=== PATIENT | male | born 1955 | race Caucasian/White ===

== ENCOUNTER 2024-05-26 12:07 | Outpatient (CLI) | payer MEDICARE, SELFPAY ==
--- NOTE | ~2024-05-26 | XR_ITS ---
EXAMINATION: XR chest 2V 05/26/2024 12:32 INDICATION: Acute bronchitis PROCEDURE: 2 view chest COMPARISON: No prior studies for comparison. FINDINGS: The lungs are clear. The cardiomediastinal silhouette is within normal limits. There are no pleural effusions. There is no pneumothorax suspected. IMPRESSION: 1: NO ACUTE CARDIOPULMONARY DISEASE. Reviewed, dictated and finalized at location B.
== END 2024-05-26 12:08 | disposition home or self-care (01) ==
LOC: MICIMG 12:10
PROVIDERS: PCP Internal Medicine; Visit Provider Internal Medicine
DX: J20.9 Acute bronchitis, unspecified (principal)
CPT/HCPCS: 71046

== ENCOUNTER 2024-12-27 08:58 | Emergency (ER) | payer MEDICARE, SELFPAY ==
--- NOTE | ~2024-12-27 | XR_ITS ---
Left foot Technique: AP, oblique, and lateral views were obtained. Clinical History: Injury Findings: No acute fracture or dislocation is seen. Osseous alignment is anatomic. Joint spaces are p reserved without erosive or degenerative change. Soft tissues are unremarkable. Impression: Unremarkable left foot radiographs. Reviewed, dictated and finalized at location . Impression: Unremarkable left foot radiographs.
[2024-12-27 09:15] VITALS: BP 159/95; PULSE 70; RESP 16; TEMP 36.6; O2SAT 100
--- NOTE | 2024-12-27 09:31 | ED.LOWEXIN ---
HPI - Extremity Injury (Lower) General Chief Complaint: Extremity Injury, Lower Stated Complaint: L foot toe broken? Time Seen by Provider: 12/27/24 09:10 History of Present Illness HPI Narrative: Patient is a 69-year-old male presents to the ER with left foot pain. He reports he was putting a alarcon's hook into the ground approximately 12 days ago when he injured his left great toe. Since that time patient endorses increased swelling to his left great toe joint, but the pain decreases when he wears tight shoes. Patient reports he took Aleve last night, which mildly helped relieve his pain. He endorses a history of high blood pressure, but no other medical history relevant to this ER visit. Patient denies any recent fevers, decreased range of motion, calf pain, or ankle pain. Related Data Allergies Allergy/AdvReac Type Severity Reaction Status Date / Time No Known Allergies Allergy Verified 12/27/24 08:59 Review of Systems Review of Systems: All systems reviewed & are unremarkable except as noted in HPI and below Exam Narrative: GENERAL: Well appearing, well-nourished, non-toxic, in no acute distress. HEAD: Normocephalic, atraumatic. NECK: Supple. No adenopathy, no masses. RESPIRATORY: Airway patent, respirations nonlabored. Clear to auscultation bilaterally, no rales, rhonchi, wheezing. CARDIOVASCULAR: Regular rate and rhythm without murmurs, rubs, or gallops. Peripheral pulses 2+ and equal bilaterally. ABDOMINAL: Soft, nontender, nondistended, no hepatosplenomegaly. Normoactive BS. MUSCULOSKELETAL: Moves all extremities. Strength/ROM intact without gross deformities. L great toe joint swollen and red. Full ROM, but painful with movement and manipulation. SKIN: Warm, dry, normal color. No rashes. NEURO: A&O X3. Speech clear. Cranial nerves II-XII intact. No ataxic movements. PSYCHIATRIC: Appropriate mood and affect. Normal interaction. Course Vital Signs Vital signs: Vital Signs Temperature 36.6 C 12/27/24 09:15 Pulse Rate 70 12/27/24 09:15 Respiratory Rate 16 12/27/24 09:15 Blood Pressure 159/95 H 12/27/24 09:15 Pulse Oximetry 100 12/27/24 09:15 Temperature 36.6 C 12/27/24 09:15 Pulse Rate 70 12/27/24 09:15 Respiratory Rate 16 12/27/24 09:15 Blood Pressure 159/95 H 12/27/24 09:15 Pulse Oximetry 100 12/27/24 09:15 MDM - Extremity Injury (Lower) MDM Narrative Medical decision making narrative: Patient is a 69-year-old male presents to the ER with left foot pain. He reports he was putting a alarcon's hook into the ground approximately 12 days ago when he injured his left great toe. Since that time patient endorses increased swelling to his left great toe joint, but the pain decreases when he wears tight shoes. Patient reports he took Aleve last night, which mildly helped relieve his pain. He endorses a history of high blood pressure, but no other medical history relevant to this ER visit. Patient denies any recent fevers, decreased range of motion, calf pain, or ankle pain. Labs Ordered: Uric acid Imaging Ordered: Left foot x-ray Medications Ordered: Toradol 60 mg IM Results: Patient's left foot x-ray was negative for any acute abnormalities. Patient's uric acid level was 8.1 Diagnosis: Left foot gout attack, left foot soft tissue injury Acute Gout Diagnosis Rule from [email or web address] on 12/27/2024 All calculations should be rechecked by clinician prior to use RESULT SUMMARY: 8 points 82.5% prevalence of gout in original study. Gout is very likely. INPUTS: Male sex ?> 2 = Yes Previous patient-reported arthritis attack ?> 0 = No Onset within 1 day ?> 0 = No Joint redness ?> 1 = Yes 1st metatarsophalangeal joint involvement ?> 0 = No Hypertension or >= cardiac diseases ?> 1.5 = Yes Serum uric acid > 5.88 mg/dL (0.35 mmol/L) ?> 3.5 = Yes Patient Education/Shared MDM: Results of lab work and imaging shared with patient. He endorses improvement following medication administration. Patient strongly advised to maintain hydration status upon discharge and follow-up with his PCP as soon as possible. He will be discharged home with a prescription for naproxen. Strict return precautions provided. Patient verbalized understanding and is in agreement with plan. Vital signs stable at time of discharge. All questions answered. Differential Diagnosis Differential diagnosis: Likely ankle sprain and strain, fracture of toe, ankle fracture and other (Gout attack) Lab Data Attestation: I reviewed the patient's lab results. Labs: Lab Results 12/27/24 Range/Units 10:54 Uric Acid 8.1 (3.5-8.5) mg/dL Imaging Data Attestation: I personally reviewed and interpreted this imaging study as follows: Radiologist's impression: Impressions Foot X-Ray 12/27/24 10:01 Impression: Unremarkable left foot radiographs. Discharge Plan Discharge Clinical Impression: Soft tissue injury of toe of left foot, Gout attack Patient Disposition: Home Condition: Stable Instructions: Antibiotic Form Additional Instructions: Please return to the ER with any worsening symptoms. Follow-up with primary care provider as soon as possible. Take all medications as prescribed, including regularly scheduled medications. You may take naproxen and Tylenol together for a short time to help alleviate the pain. Patient Language: [place]ic Prescriptions: New naproxen 500 mg tablet 500 mg PO BID PRN (Reason: pain) Qty: 15 0RF Follow-up/Referrals: Young,MD Patricio ([place]) [Primary Care Provider] - Time of Disposition: 11:39
[2024-12-27] MEDS: KETOROLAC (*BKC) 60 MG/2 ML VIAL IM (09:42)
[2024-12-27 09:57] VITALS: BP 169/87; PULSE 89; RESP 16; O2SAT 100
[2024-12-27 10:01] VITALS: BP 170/91; PULSE 76; RESP 15; O2SAT 100
--- OUTSIDE RECORDS SUMMARY | 2024-12-27 10:17 | XMS_ITS | Data Portability ---
Author Organization [facility], [employer] Address [address] [address] Assessment Encounter Date Assessment Date Assessment LastModified by Organization Details LastModified Time 04/27/2023 04/27/2023 Recommends healthy nutrition, including a diet rich in fruits and vegetables, minimizing simple carbohydrates, salt, and saturated fats. Encouraged regular cardiovascular exercise such as walking at least 30 minutes daily, 5 times per week. [facility] Not available 04/27/2023 18:37:50 06/08/2023 06/08/2023 Patient presente d to office today for their Medicare Annual Wellness Visit. Recommends healthy nutrition, including a diet rich in fruits and vegetables, minimizing simple carbohydrates, salt, and saturated fats. Encouraged regular cardiovascular exercise such as walking at least 30 minutes daily, 5 times per week. Emphasized preventive health measures and educated pt on fall prevention and community-based lifestyle interventions to help reduce health risks and promote healthy living. Not available 06/08/2023 16:43:38 12/09/2023 12/09/2023 Patient presente d to office today for their Medicare Annual Wellness Visit. Recommends healthy nutrition, including a diet rich in fruits and vegetables, minimizing simple carbohydrates, salt, and saturated fats. Encouraged regular cardiovascular exercise such as walking at least 30 minutes daily, 5 times per week. Emphasized preventive health measures and educated pt on fall prevention and community-based lifestyle interventions to help reduce health risks and promote healthy living. Not available 12/09/2023 12:21:09 05/26/2024 05/26/2024 Patient presente d for follow up. Studies ordered as below. Discussed plan with patient/caregiver , who expressed understanding. Follow up as noted below. Not available 05/26/2024 12:17:53 06/05/2024 06/05/2024 Recommends healthy nutrition, including a diet rich in fruits and vegetables, minimizing simple carbohydrates, salt, and saturated fats. Encouraged regular cardiovascular exercise such as walking at least 30 minutes daily, 5 times per week. Emphasized preventive health measures and educated pt on fall prevention and community-based lifestyle interventions to help reduce health risks and promote healthy living. formerly [facility] Not available 06/05/2024 12:18:20 Plan of Treatment Reminders Order Date Submit Date Provider Last Modified By Organization Details Last Modified Time Details Appointments establish ed visit 30 min 2024 04:30P Neville Vidal MD Not available Not available Not available Lab CBC w/ auto diff 2023 [facility], [address] [place] [address], [id number], 12/09/2024 12:39:09 lipid panel, serum [address] [facility] Patient [facility], [place], [address], 12/09/2024 17:58:38 CMP, serum or plasma [address], [address] [place] [address], [address], 12/09/2024 17:58:27 PSA, serum or plasma 2023 024 [facility], [address] [place] [address], [address], 06/05/2024 12:17:17 vitamin D, 25-hydrox y, total, serum 2023 024 [facility], [address] [place], [address], 12/09/2024 12:39:12 microalbu min/creat inine, mass ratio, urine 2023 [facility], [place], [address], 06/05/2024 12:18:41 HIV 1 + 2, meaningfu l use set 2023 024 [facility], [address] [facility], [place], [address], 12/09/2024 12:39:13 microalbu min/creat inine, mass ratio, urine 2023 024 [facility], [address] [facility], [place], [address], 05/26/2024 12:29:04 lipid panel, serum 2023 024 [facility], [address] [place], [address], 05/27/2024 13:21:27 CMP, serum or plasma 2023 024 [facility], [address] [place], [address], 05/27/2024 13:21:27 lipid panel, serum 2023 024 [facility], [facility], [place], [address], 12/09/2023 12:20:54 CMP, serum or plasma 2023 024 [email or web address] Not available 12/16/2023 08:21:50 vitamin D, 25-hydrox y, total, serum 2023 024 [facility], [address] [place], [address], 12/09/2023 12:20:57 microalbu min/creat inine, mass ratio, urine 2023 024 [facility], [facility], [place], [address], 01/03/2024 00:50:16 HIV 1 + 2, meaningfu l use set 2023 024 [facility], [address] , [place], [address], 12/09/2023 12:20:56 microalbu min/creat inine, mass ratio, urine 2022 023 [facility], [address], [place], [address], 06/08/2023 16:40:51 lipid panel, serum 2022 023 [facility], [address], [place], [address], 12/04/2023 16:11:02 CMP, serum or plasma 2022 023 [email or web address] Not available 06/15/2023 08:14:38 PSA, serum or plasma 2022 023 [facility], [address], [place], [address], 04/29/2023 14:44:05 vitamin D, 25-hydrox y, total, serum 2022 023 [facility], [address], [place], [address], 04/29/2023 14:44:06 microalbu min/creat inine, mass ratio, urine 2022 023 [facility], [address], [place], [address], 04/29/2023 14:44:07 lipid panel, serum 2022 023 [facility], [facility], [place], [address], 04/27/2023 18:35:23 CMP, serum or plasma 2022 023 [email or web address] Not available 05/04/2023 09:14:46 Referral None recorded. Procedures None recorded. Surgeries None recorded. Imaging XR, chest, 2 view 2023 [facility], [address] [address], [place], [address], 05/29/2024 14:11:36 Medication Orders icosapent ethyl 1 gram capsule 2023 [place] [facility] [address] [facility], [address], [place], [address], 06/05/2024 12:16:43 trazodone 50 mg tablet 2023 024 [place] [facility] [address] [facility], [address], [place], [address], 06/05/2024 12:16:43 cefdinir 300 mg capsule 2023 025 [id number], [address], [place], [id number], 12/09/2024 17:59:33 lisinopri l 20 mg tablet 2023 024 [id number], [address], [place], [id number], 05/26/2024 12:28:36 icosapent ethyl 1 gram capsule 2023 024 [id number], [address], [place], [id number], 05/26/2024 12:28:36 rosuvasta tin 10 mg tablet 2023 024 [facility] [address] [place], [address], 12/09/2024 18:03:08 icosapent ethyl 1 gram capsule 2023 024 [facility] [address] [address] [place], [address], 12/09/2023 12:19:58 trazodone 50 mg tablet 2023 024 [facility] [address], [address], 07/11/2024 17:35:40 rosuvasta tin 10 mg tablet 2022 023 [facility] [address] [address] [place], [address], 12/09/2024 18:03:08 icosapent ethyl 1 gram capsule 2022 023 [facility] [address] [facility], [address] [place] [address], [address], 06/08/2023 16:45:44 trazodone 50 mg tablet 2022 023 [facility] [address], [address], 07/02/2023 17:15:59 Patient TargetsNo targets recorded. Patient Instructions Encounter Date Encounter Id Patient Instructions Last Modified By Organization Details Last Modified Time 06/08/2023 [id number] medicare preventive services guide Not available 06/08/2023 16:39:37 advance care planning: care instructions Not available 06/08/2023 16:39:37 05/26/2024 [id number] -- if any difficulty breathing, chest tightness/chest pain or increasing weakness or any increasing symptoms, or if pulse oximeter less than 90% --> you must go to the Emergency Room to evaluate for Pneumonia. Not available 05/26/2024 12:31:18 06/05/2024 [id number] advance care planning: care instructions Not available 06/05/2024 12:16:34 medicare preventive services guide Not available 06/05/2024 12:16:35 advance care planning: care instructions Not available 06/05/2024 12:16:34 Reason for Referral None Reported. Results Created Date Observation Date Name Description Value Unit Range Abnormal Flag Note LastModifiedBy Organization Detail LastModifiedTime 04/28/2004/28/2023 LIPID PANEL trigylceride s 384 RESULT VERIFI ED BY DELTA CHECK. mg/dL 0-150 high Not Available [facility] (Main Location) [address] ,, [place], [address], 04/29/2023 14:44:04 04/28/20 23 04/28/2023 LIPID PANEL cholesterol 220 mg/dL 0-200 high Not Available [facility] (Main Location) [address] ,, [place], [address], 04/29/2023 14:44:04 04/28/20 23 04/28/2023 LIPID PANEL uhdl 29 mg/dL 35-55 low Not Available [facility] (Main Location) [address] ,, [place], [address], 04/29/2023 14:44:04 04/28/20 23 04/28/2023 LIPID PANEL LDL, calculated 114 mg/dL 0-100 high Not Available [facility] (Main Location) [address] ,, [place], [address], 04/29/2023 14:44:04 04/28/20 23 04/28/2023 LIPID PANEL LDL/HDL ratio 4 mg/dL 0-5 Not Available [facility] (Main Location) [address] ,, [place], [address], 04/29/2023 14:44:04 04/28/20 23 04/28/2023 LIPID PANEL VLDL 76.8 RESULT VERIFI ED BY DELTA CHECK. mg/dL 5.0-40 .0 high Not Available [facility] (Main Location) [facility] ,, [place], [address], 04/29/2023 14:44:04 04/28/20 23 04/28/2023 LIPID PANEL cholesterol/ HDL ratio 7.59 0.00-5 .00 high Not Available [facility] (Main Location) [address] [place], [place] [address] ,, [place], [address], 04/29/2023 14:44:04 04/28/20 23 04/28/2023 PROST ATE-S PECIF IC ANTIG EN (PSA) SCREE N PSA, total 1.9 NG/mL 0.0-4. 0 PSA is an elect luis eduardo milum inesc ence immun oassa y run on the [address] Edu[address] 6000. Not Available [facility] (Main Location) [facility] [address] ,, [place], [address], 04/29/2023 14:44:05 04/28/20 23 04/28/2023 VITAM IN D 25-HY DROXY vitamin D 30.8 NG/mL 30.0-9 6.0 Defic ient: <=20 ng/mL Insuf ficie nt: 21-29 ng/mL Suffi cient : >=30 ng/mL Not Available [facility] (Main Location) [facility] [address] ,, [place], [address], 04/29/2023 14:44:06 04/28/20 23 04/28/2023 URINE MICRO ALBUM IN/CR EATIN INE RATIO urine microalbumin 3 mg/L 0-30 Not Available [facility] (Main Location) [facility] [address] ,, [place], [address], 04/29/2023 14:44:07 04/28/20 23 04/28/2023 URINE MICRO ALBUM IN/CR EATIN INE RATIO urine creatinine 116.54 mg/dL 39.00- 259.00 Not Available [facility] (Main Location) [facility] [address] ,, [place], [address], 04/29/2023 14:44:07 04/28/20 23 04/28/2023 URINE MICRO ALBUM IN/CR EATIN INE RATIO urine microalbumin /creatinine ratio 2 mg/g_ creat inine 0-30 Not Available [facility] (Main Location) [facility] [address] ,, [place], [address], 04/29/2023 14:44:07 04/28/20 23 04/28/2023 CMP (COMP REHEN SIVE METAB OLIC PANEL ) glucose 113 mg/dL 74-99 high Not Available [facility] (Main Location) [facility] [address] ,, [place], [address], 05/06/2023 17:50:41 04/28/20 23 04/28/2023 CMP (COMP REHEN SIVE METAB OLIC PANEL ) urea nitrogen, blood (BUN) 14 mg/dL 8-23 Not Available [facility] (Main Location) [facility] [address] ,, [place], [address], 05/06/2023 17:50:41 04/28/20 23 04/28/2023 CMP (COMP REHEN SIVE METAB OLIC PANEL ) total bilirubin 0.2 mg/dL 0.0-1. 2 Not Available [facility] (Main Location) [facility] [address] ,, [place], [address], 05/06/2023 17:50:41 04/28/20 23 04/28/2023 CMP (COMP REHEN SIVE METAB OLIC PANEL ) total protein 7.8 g/dL 6.6-8. 7 Not Available [facility] (Main Location) [facility] [address] ,, [place], [address], 05/06/2023 17:50:41 04/28/20 23 04/28/2023 CMP (COMP REHEN SIVE METAB OLIC PANEL ) alanine aminotransfe rase (ALT) 18 U/L 0-41 Not Available [facility] (Main Location) [address] [place] [address] Rd[address] ,, [place], [address], 05/06/2023 17:50:41 04/28/20 23 04/28/2023 CMP (COMP REHEN SIVE METAB OLIC PANEL ) alkaline phosphatase 49 U/L 40-130 Not Available [facility] (Main Location) [address] [place] [address] Rd[address] ,, [place], [address], 05/06/2023 17:50:41 04/28/20 23 04/28/2023 CMP (COMP REHEN SIVE METAB OLIC PANEL ) aspartate aminotransfe rase (AST) 17 U/L 0-40 Not Available [facility] (Main Location) [address] [place] [address] Rd[address] ,, [place], [address], 05/06/2023 17:50:41 04/28/20 23 04/28/2023 CMP (COMP REHEN SIVE METAB OLIC PANEL ) calcium 9.6 mg/dL 8.6-10 .2 Not Available [facility] (Main Location) [address] [place] [address] Rd[address] ,, [place], [address], 05/06/2023 17:50:41 04/28/20 23 04/28/2023 CMP (COMP REHEN SIVE METAB OLIC PANEL ) albumin 4.7 g/dL 3.5-5. 2 Not Available [facility] (Main Location) [address] [place] [address] Rd[address] ,, [place], [address], 05/06/2023 17:50:41 04/28/20 23 04/28/2023 CMP (COMP REHEN SIVE METAB OLIC PANEL ) CO2 28 mmol/ L 23-31 Not Available [facility] (Main Location) [address] [place] [address] Rd[address] ,, [place], [address], 05/06/2023 17:50:41 04/28/20 23 04/28/2023 CMP (COMP REHEN SIVE METAB OLIC PANEL ) creatinine, serum 1.0 mg/dL 0.7-1. 2 Not Available [facility] (Main Location) [address] ,, [place], [address], 05/06/2023 17:50:41 04/28/20 23 04/28/2023 CMP (COMP REHEN SIVE METAB OLIC PANEL ) sodium, serum 137 mmol/ L 136-14 5 Not Available [facility] (Main Location) [address] ,, [place], [address], 05/06/2023 17:50:41 04/28/20 23 04/28/2023 CMP (COMP REHEN SIVE METAB OLIC PANEL ) potassium, serum 4.3 mmol/ L 3.5-5. 1 Not Available [facility] (Main Location) [address] ,, [place], [address], 05/06/2023 17:50:41 04/28/20 23 04/28/2023 CMP (COMP REHEN SIVE METAB OLIC PANEL ) chloride, serum 97 mmol/ L 98-107 low Not Available [facility] (Main Location) [address] ,, [place], [address], 05/06/2023 17:50:41 04/28/20 23 04/28/2023 CMP (COMP REHEN SIVE METAB OLIC PANEL ) eGFR 87 >59 Persi stent reduc tion for 3 month s or more in an eGFR <60 mL/mi n/1.7 3 m2 defin es CKD. Patie nts with eGFR value s>/=6 0 mL/mi n/1.7 3 m2 may also have CKD if evide nce of persi stent protu aravind a is prese nt. Addit ional infor jaqueline everett may be found at [email or web address] org. Not Available [facility] (Main Location) [address] ,, [place], [address], 05/06/2023 17:50:41 09/05/20/2023 HEMOG LOBIN A1C HGBA1C 5.3 % 4.0-6. 0 Not Available [facility] (Main Location) [facility] ,, [place], [address], 05/21/2023 15:06:14 05/27/20 23 05/27/2023 GLUCO SE SOLO ANCE TESTI NG, 3 HR glucose fasting 109 mg/dL 74-99 high Not Available [facility] (Main Location) [facility] [address] ,, [place], [address], 05/28/2023 15:41:14 05/27/20 23 05/27/2023 GLUCO SE SOLO ANCE TESTI NG, 3 HR glucose, 1 hour 67 mg/dL 74-199 low Not Available [facility] (Main Location) [facility] [address] ,, [place], [address], 05/28/2023 15:41:14 05/27/20 23 05/27/2023 GLUCO SE SOLO ANCE TESTI NG, 3 HR glucose, 2 hour 106 mg/dL 74-139 Not Available [facility] (Main Location) [facility] [address] ,, [place], [address], 05/28/2023 15:41:14 05/27/20 23 05/27/2023 GLUCO SE SOLO ANCE TESTI NG, 3 HR glucose, 3 hour 181 mg/dL 74-139 high Not Available [facility] (Main Location) [facility] [address] ,, [place], [address], 05/28/2023 15:41:14 05/27/20 23 05/27/2023 GLUCO SE SOLO ANCE TESTI NG, 3 HR glucose fasting 109 mg/dL 74-99 high Not Available [facility] (Main Location) [facility] [address] ,, [place], [address], 05/28/2023 15:41:14 05/27/20 23 05/27/2023 GLUCO SE SOLO ANCE TESTI NG, 3 HR glucose, 1 hour 67 mg/dL 74-199 low Not Available [facility] (Main Location) [address] [place], [place] [address] ,, [place], [address], 05/28/2023 15:41:14 05/27/20 23 05/27/2023 GLUCO SE SOLO ANCE TESTI NG, 3 HR glucose, 2 hour 106 mg/dL 74-139 Not Available [facility] (Main Location) [address] [place], [place] [address] ,, [place], [address], 05/28/2023 15:41:14 05/27/20 23 05/27/2023 GLUCO SE SOLO ANCE TESTI NG, 3 HR glucose, 3 hour 181 mg/dL 74-139 high Not Available [facility] (Main Location) [address] [place], [place] [address] ,, [place], [address], 05/28/2023 15:41:14 05/27/20 23 05/27/2023 GLUCO SE SOLO ANCE TESTI NG, 3 HR glucose fasting 109 mg/dL 74-99 high Not Available [facility] (Main Location) [address] [place], [place] [address] ,, [place], [address], 05/28/2023 15:41:14 05/27/20 23 05/27/2023 GLUCO SE SOLO ANCE TESTI NG, 3 HR glucose, 1 hour 67 mg/dL 74-199 low Not Available [facility] (Main Location) [address] [place], [place] [address] ,, [place], [address], 05/28/2023 15:41:14 05/27/20 23 05/27/2023 GLUCO SE SOLO ANCE TESTI NG, 3 HR glucose, 2 hour 106 mg/dL 74-139 Not Available [facility] (Main Location) [address] [place], [place] [address] ,, [place], [address], 05/28/2023 15:41:14 05/27/20 23 05/27/2023 GLUCO SE SOLO ANCE TESTI NG, 3 HR glucose, 3 hour 181 mg/dL 74-139 high Not Available [facility] (Main Location) [address] [place] [address]. [address] ,, [place], [address], 05/28/2023 15:41:14 05/27/20 23 05/27/2023 GLUCO SE SOLO ANCE TESTI NG, 3 HR glucose fasting 109 mg/dL 74-99 high Not Available [facility] (Main Location) [address] [place] [address]. [address] ,, [place], [address], 05/28/2023 15:41:14 05/27/20 23 05/27/2023 GLUCO SE SOLO ANCE TESTI NG, 3 HR glucose, 1 hour 67 mg/dL 74-199 low Not Available [facility] (Main Location) [address] [place] [address]. [address] ,, [place], [address], 05/28/2023 15:41:14 05/27/20 23 05/27/2023 GLUCO SE SOLO ANCE TESTI NG, 3 HR glucose, 2 hour 106 mg/dL 74-139 Not Available [facility] (Main Location) [address] [place] [address]. [address] ,, [place], [address], 05/28/2023 15:41:14 05/27/20 23 05/27/2023 GLUCO SE SOLO ANCE TESTI NG, 3 HR glucose, 3 hour 181 mg/dL 74-139 high Not Available [facility] (Main Location) [address] [place] [address]. [address] ,, [place], [address], 05/28/2023 15:41:14 12/03/19 24 12/04/2023 COMP. METAB OLIC PANEL (14) glucose 109 mg/dL 70-99 above high normal Not Available [facility] ([facility]) [address] [place], [address], 12/04/2023 16:11:01 12/03/19 24 12/04/2023 COMP. METAB OLIC PANEL (14) BUN 18 mg/dL 8-27 Not Available [facility] ([facility]) [address] [place], [address], 12/04/2023 16:11:01 12/03/19 24 12/04/2023 COMP. METAB OLIC PANEL (14) creatinine 1.03 mg/dL 0.76-1 .27 Not Available [facility] ([facility]) [address] [facility], [place], [address], 12/04/2023 16:11:01 12/03/19 24 12/04/2023 COMP. METAB OLIC PANEL (14) eGFR 80 mL/mi n/1.7 3 >59 Not Available [facility] ([facility]) [address] [facility] [place], [address], 12/04/2023 16:11:01 12/03/19 24 12/04/2023 COMP. METAB OLIC PANEL (14) BUN/creatini ne ratio 17 10-24 Not Available [facility] ([facility]) [address] [facility], [place], [address], 12/04/2023 16:11:01 12/03/19 24 12/04/2023 COMP. METAB OLIC PANEL (14) sodium 138 mmol/ L 134-14 4 Not Available [facility] ([facility]) [address] [facility], [place], [address], 12/04/2023 16:11:01 12/03/19 24 12/04/2023 COMP. METAB OLIC PANEL (14) potassium 4.4 mmol/ L 3.5-5. 2 Not Available [facility] ([facility]) [address] [facility], [place], [address], 12/04/2023 16:11:01 12/03/19 24 12/04/2023 COMP. METAB OLIC PANEL (14) chloride 100 mmol/ L 96-106 Not Available [facility] ([facility]) [address] [facility], [place], [address], 12/04/2023 16:11:01 12/03/19 24 12/04/2023 COMP. METAB OLIC PANEL (14) carbon dioxide, total 27 mmol/ L 20-29 Not Available [facility] ([facility]) [address] [facility], [place], [address], 12/04/2023 16:11:01 12/03/19 24 12/04/2023 COMP. METAB OLIC PANEL (14) calcium 9.4 mg/dL 8.6-10 .2 Not Available [facility] ([facility]) [address] [facility], [place], [address], 12/04/2023 16:11:01 12/03/19 24 12/04/2023 COMP. METAB OLIC PANEL (14) protein, total 7.6 g/dL 6.0-8. 5 Not Available [facility] ([facility]) [address] [facility], [place], [address], 12/04/2023 16:11:01 12/03/19 24 12/04/2023 COMP. METAB OLIC PANEL (14) albumin 4.8 g/dL 3.9-4. 9 Not Available [facility] ([facility]) [address] [place], [address], 12/04/2023 16:11:01 12/03/19 24 12/04/2023 COMP. METAB OLIC PANEL (14) globulin, total 2.8 g/dL 1.5-4. 5 Not Available [facility] ([facility]) [address] [place], [address], 12/04/2023 16:11:01 12/03/19 24 12/04/2023 COMP. METAB OLIC PANEL (14) A/G ratio 1.7 1.2-2. 2 Not Available [facility] ([facility]) [address] [place], [address], 12/04/2023 16:11:01 12/03/19 24 12/04/2023 COMP. METAB OLIC PANEL (14) bilirubin, total 0.6 mg/dL 0.0-1. 2 Not Available [facility] ([facility]) [address] [facility] [place], [address], 12/04/2023 16:11:01 12/03/19 24 12/04/2023 COMP. METAB OLIC PANEL (14) alkaline phosphatase 50 IU/L 44-121 Not Available [facility] ([facility]) [address] [facility] [place], [address], 12/04/2023 16:11:01 12/03/19 24 12/04/2023 COMP. METAB OLIC PANEL (14) AST (SGOT) 24 IU/L 0-40 Not Available [facility] ([facility]) [address] [facility], [place], [address], 12/04/2023 16:11:01 12/03/19 24 12/04/2023 COMP. METAB OLIC PANEL (14) ALT (SGPT) 27 IU/L 0-44 Not Available [facility] ([facility]) [address] [facility], [place], [address], 12/04/2023 16:11:01 12/03/19 24 12/04/2023 LIPID PANEL cholesterol, total 140 mg/dL 100-19 9 Not Available [facility] ([facility]) [address] [place], [address], 12/04/2023 16:11:02 12/03/19 24 12/04/2023 LIPID PANEL triglyceride s 117 mg/dL 0-149 Not Available [facility] ([facility]) [address] [place], [address], 12/04/2023 16:11:02 12/03/19 24 12/04/2023 LIPID PANEL HDL cholesterol 36 mg/dL >39 below low normal Not Available [facility] ([facility]) [address] [place], [address], 12/04/2023 16:11:02 12/03/19 24 12/04/2023 LIPID PANEL VLDL cholesterol saundra 21 mg/dL 5-40 Not Available [facility] ([facility]) [address] [facility], [place], [address], 12/04/2023 16:11:02 12/03/19 24 12/04/2023 LIPID PANEL LDL chol calc ([facility]) 83 mg/dL 0-99 Not Available [facility] ([facility]) [address] [facility], [place], [address], 12/04/2023 16:11:02 12/03/19 24 12/04/2023 LIPID PANEL comment: [employer]GE [employer] Not Available [facility] ([facility]) [address] [facility], [place], [address], 12/04/2023 16:11:02 12/03/19 24 12/04/2023 ALBUM IN/CR EATIN INE RATIO ,URIN E creatinine, urine 46.4 mg/dL not estab. Not Available [facility] [facility] [address] [facility], [place], [address], 12/04/2023 16:11:03 12/03/19 24 12/04/2023 ALBUM IN/CR EATIN INE RATIO ,URIN E albumin, urine <3.0 ug/mL not estab. Not Available [facility] ([facility]) [address] [facility], [place], [address], 12/04/2023 16:11:03 12/03/19 24 12/04/2023 ALBUM IN/CR EATIN INE RATIO ,URIN E alb/creat ratio <6 mg/g_ creat 0-29 Hannah l: 0 - 29 Moder ately incre ased: 30 - 300 Sever omar incre ased: >300 Not Available [facility] ([facility]) [address] [facility], [place], [address], 12/04/2023 16:11:03 12/03/19 24 12/03/2023 AMBIG ABBRE V CMP14 DEFAU LT ambig abbrev CMP14 default Commen t A hand- writt en panel /prof ile was recei birdie from your offic e. In accor dance with the [facility] Stephan udelisa Test Code Polic y dated February 2003, we have compl eted your order by using the close st curre ntly or forme rly recog nized AMA panel . We have asschristina joel Compr ehens laura Metab olic Panel (14), Test Code #32[address]. If this is not the testi ng you wishe d to recei ve on this speci men, pleas e conta ct the [facility] Clien t Inqui ry/Te chnic al Servi antonio Depar tment to nyla fy the test order . We appre ciate your busin ess. Not Available [facility] ([facility]) [address] [place], [address], 12/04/2023 16:11:03 12/03/19 24 12/03/2023 AMBIG ABBRE V LP DEFAU LT ambig abbrev LP default Commen t A hand- writt en panel /prof ile was recei birdie from your offic e. In accor dance with the [facility] Stephan tatum Test Code Polic y dated February 2003, we have compl eted your order by using the close st curre ntly or forme rly recog nized AMA panel . We have sherri joel Lipid Panel , Test Code #3037 [address]. If this is not the testi ng you wishe d to recei ve on this speci men, pleas e conta ct the [facility] Clien t Inqui ry/Te chnic al Servi antonio Depar tment to nyla fy the test order . We appre ciate your busin ess. Not Available [facility] ([facility] [address] [place], [address], 12/04/2023 16:11:04 05/26/20 24 05/26/2024 COMPR EHENS LAURA METAB OLIC PANEL sodium 142 mmol/ L 134-14 4 Not Available [facility] [address] [facility] [address], [place], [address], 05/27/2024 13:21:26 05/26/20 24 05/26/2024 COMPR EHENS LAURA METAB OLIC PANEL potassium 4.8 mmol/ L 3.5-5. [address] [facility] [address] [facility] [address], [place], [address], 05/27/2024 13:21:26 05/26/20 24 05/26/2024 COMPR EHENS LAURA METAB OLIC PANEL chloride 100 mmol/ L 98-107 Not Available [facility] [address] [facility] [address], [place], [address], 05/27/2024 13:21:05/26/20 24 05/26/2024 COMPR EHENS LAURA METAB OLIC PANEL carbon dioxide (co2) 27.0 mmol/ L 18.0-2 9.0 Not Available [facility] [address] [facility] [address], [place], [address], 05/27/2024 13:21:26 05/26/20 24 05/26/2024 COMPR EHENS LAURA METAB OLIC PANEL glucose 83 mg/dL 65-99 Hannah l Fasti n - 99 mg/dL Impai red Fasti n - 125 mg/dL Diagn ostic of Diabe omar: => 126 mg/dL Ameri can Diabe omar Ass[facility] iatio n, 2008 Not Available [facility] [address] [facility] [address], [place], [address], 05/27/2024 13:21:05/26/20 24 05/26/2024 COMPR EHENS LAURA METAB OLIC PANEL urea nitrogen (BUN) 14 mg/dL 8-23 Not Available [facility] [address] [facility] [address], [place], [address], 05/27/2024 13:21:26 05/26/20 24 05/26/2024 COMPR EHENS LAURA METAB OLIC PANEL creatinine 1.08 mg/dL 0.76-1 .27 Not Available [facility] [address], [place], [address], 05/27/2024 13:21:26 05/26/20 24 05/26/2024 COMPR EHENS LAURA METAB OLIC PANEL eGFR 75 mL/mi nute/ 1.73_ m2 >59 MDRD Study Equat ion: The calcu lated GFR is NOT appli cable for pedia tric (< 18 years old) and > 70 year old patie nts and patie nts that are NOT of stead y state . Not Available [facility] [address], [place], [address], 05/27/2024 13:21:05/26/20 24 05/26/2024 COMPR EHENS LAURA METAB OLIC PANEL calcium 10.0 mg/dL 8.6-10 .2 Not Available [facility] [address], [place], [address], 05/27/2024 13:21:05/26/20 24 05/26/2024 COMPR EHENS LAURA METAB OLIC PANEL protein, total 7.8 gm/dL 6.4-8. 3 Not Available [facility] [address], [place], [address], 05/27/2024 13:21:26 05/26/20 24 05/26/2024 COMPR EHENS LAURA METAB OLIC PANEL albumin 4.7 gm/dL 3.5-5. 2 Not Available [facility] [address], [place], [address], 05/27/2024 13:21:26 05/26/20 24 05/26/2024 COMPR EHENS LAURA METAB OLIC PANEL bilirubin, total 0.50 mg/dL 0.00-1 .20 Not Available [facility] [address] [facility] [address], [place], [address], 05/27/2024 13:21:26 05/26/20 24 05/26/2024 COMPR EHENS LAURA METAB OLIC PANEL alkaline phosphatase (ALP) 61 U/L 39-117 Not Available [facility] [address] [facility] [address], [place], [address], 05/27/2024 13:21:26 05/26/20 24 05/26/2024 COMPR EHENS LAURA METAB OLIC PANEL aspartate aminotransfe rase (AST) 24 U/L 0-40 Not Available [place] [id number] [facility] [address], [place], [address], 05/27/2024 13:21:26 05/26/20 24 05/26/2024 COMPR EHENS LAURA METAB OLIC PANEL alanine aminotransfe rase (ALT) 27 U/L 0-41 Not Available [facility] [address] [facility] [address], [place], [address], 05/27/2024 13:21:26 05/26/20 24 05/26/2024 COMPR EHENS LAURA METAB OLIC PANEL A/G ratio (calculated) 1.5 ratio 1.0-2. 7 Not Available [place] [id number] [facility] [address], [place], [address], 05/27/2024 13:21:26 05/26/20 24 05/26/2024 COMPR EHENS LAURA METAB OLIC PANEL globulin (calculated) 3.1 gm/dL 1.5-3. 8 Not Available [address], [place], [address], 05/27/2024 13:21:26 05/26/20 24 05/26/2024 COMPR EHENS LAURA METAB OLIC PANEL BUN/creatini ne ratio (calculated) 13.0 ratio 8.0-20 .0 Not Available [address], [place], [address], 05/27/2024 13:21:26 05/26/20 24 05/26/2024 COMPR EHENS LAURA METAB OLIC PANEL serum hemolysis index Normal index normal Not Available [facility] [address] [facility] [address], [place], [address], 05/27/2024 13:21:26 05/26/20 24 05/26/2024 LIPID PANEL W/ CALC. LDL cholesterol, total 156 mg/dL 100-19 9 Not Available [facility] [address] [facility] [address], [place], [address], 05/27/2024 13:21:27 05/26/20 24 05/26/2024 LIPID PANEL W/ CALC. LDL HDL cholesterol 37 mg/dL =>40 Not Available [facility] [address] [facility] [address], [place], [address], 05/27/2024 13:21:27 05/26/20 24 05/26/2024 LIPID PANEL W/ CALC. LDL LDL cholesterol (calculated) 83 mg/dL 0-99 Not Available [facility] [address] [facility] [address], [place], [address], 05/27/2024 13:21:27 05/26/20 24 05/26/2024 LIPID PANEL W/ CALC. LDL triglyceride s 180 mg/dL 50-149 high Not Available [facility] [address] [facility] [address], [place], [address], 05/27/2024 13:21:27 05/26/20 24 05/26/2024 LIPID PANEL W/ CALC. LDL chol/HDL ratio (calculated) 4.22 ratio 0.00-5 .00 Not Available [facility] [address] [facility] [address], [place], [address], 05/27/2024 13:21:27 05/26/20 24 05/26/2024 LIPID PANEL W/ CALC. LDL VLDL cholesterol (calculated) 36 mg/dL 5-40 Not Available [facility] [address] [facility] [address], [place], [address], 05/27/2024 13:21:27 05/26/20 24 05/26/2024 MICRO ALBUM IN:CR EATIN INE RATIO , RANDO M URINE microalbumin , urine 0.12 mcg/m L not applic able Not Available [facility] [address] [facility] [address], [place], [address], 05/27/2024 13:21:28 05/26/20 24 05/26/2024 MICRO ALBUM IN:CR EATIN INE RATIO , RANDO M URINE creatinine, urine 27.0 mg/dL not applic able Not Available [facility] [address] [facility] [address], [place], [address], 05/27/2024 13:21:28 05/26/20 24 05/26/2024 MICRO ALBUM IN:CR EATIN INE RATIO , RANDO M URINE microalbumin :creatinine ratio, random urine (calculated) 4.5 mg/gm _crea t. Hannah l: 0-29 mg/gm Moder ately incre ased: 30-30 0 mg/gm Sever ly incre ased: >300 mg/gm Not Available [facility] [address] [facility] [address], [place], [address], 05/27/2024 13:21:28 12/09/19 25 12/09/2024 CBC/D IFF AMBIG UOUS DEFAU LT WBC 6.5 x10e3 /uL 3.4-10 .8 normal Not Available [facility] ([facility]) [address] [facility], [place], [address], 12/09/2024 12:39:09 12/09/19 25 12/09/2024 CBC/D IFF AMBIG UOUS DEFAU LT RBC 5.41 x10e6 /uL 4.14-5 .80 normal Not Available [facility] ([facility]) [address] [facility], [place], [address], 12/09/2024 12:39:09 12/09/19 25 12/09/2024 CBC/D IFF AMBIG UOUS DEFAU LT hemoglobin 16.7 g/dL 13.0-1 7.7 normal Not Available [facility] ([facility]) [address] [facility], [place], [address], 12/09/2024 12:39:09 12/09/19 25 12/09/2024 CBC/D IFF AMBIG UOUS DEFAU LT hematocrit 49.7 % 37.5-5 1.0 normal Not Available [facility] ([facility]) [address] [facility], [place], [address], 12/09/2024 12:39:09 12/09/19 25 12/09/2024 CBC/D IFF AMBIG UOUS DEFAU LT MCV 92 fL 79-97 normal Not Available [facility] ([facility]) [address] [place], [address], 12/09/2024 12:39:09 12/09/19 25 12/09/2024 CBC/D IFF AMBIG UOUS DEFAU LT MCH 30.9 pg 26.6-3 3.0 normal Not Available [facility] ([facility]) [address] [place], [address], 12/09/2024 12:39:09 12/09/19 25 12/09/2024 CBC/D IFF AMBIG UOUS DEFAU LT MCHC 33.6 g/dL 31.5-3 5.7 normal Not Available [facility] ([facility]) [address] [place], [address], 12/09/2024 12:39:09 12/09/19 25 12/09/2024 CBC/D IFF AMBIG UOUS DEFAU LT RDW 12.6 % 11.6-1 5.4 Not Available [facility] ([facility]) [address] [facility], [place], [address], 12/09/2024 12:39:09 12/09/19 25 12/09/2024 CBC/D IFF AMBIG UOUS DEFAU LT platelets 207 x10e3 /uL 150-45 0 normal Not Available [facility] ([facility]) [address] [facility], [place], [address], 12/09/2024 12:39:09 12/09/19 25 12/09/2024 CBC/D IFF AMBIG UOUS DEFAU LT neutrophils 61 % not estab. normal Not Available [facility] ([facility]) [address] [facility], [place], [address], 12/09/2024 12:39:09 12/09/19 25 12/09/2024 CBC/D IFF AMBIG UOUS DEFAU LT lymphs 25 % not estab. normal Not Available [facility] ([facility]) [address] [facility], [place], [address], 12/09/2024 12:39:09 12/09/19 25 12/09/2024 CBC/D IFF AMBIG UOUS DEFAU LT monocytes 10 % not estab. normal Not Available [facility] ([facility]) [address] [facility], [place], [address], 12/09/2024 12:39:09 12/09/19 25 12/09/2024 CBC/D IFF AMBIG UOUS DEFAU LT eos 2 % not estab. normal Not Available [facility] ([facility]) [address] [facility], [place], [address], 12/09/2024 12:39:09 12/09/19 25 12/09/2024 CBC/D IFF AMBIG UOUS DEFAU LT basos 1 % not estab. normal Not Available [facility] ([facility]) [address] [facility], [place], [address], 12/09/2024 12:39:09 12/09/19 25 12/09/2024 CBC/D IFF AMBIG UOUS DEFAU LT immature cells S[employer]GE [employer]AD [employer]ER Not Available [facility] ([facility]) [address] [facility], [place], [address], 12/09/2024 12:39:09 12/09/19 25 12/09/2024 CBC/D IFF AMBIG UOUS DEFAU LT neutrophils (absolute) 4.0 x10e3 /uL 1.4-7. 0 normal Not Available [facility] ([facility]) [address] [facility], [place], [address], 12/09/2024 12:39:09 12/09/19 25 12/09/2024 CBC/D IFF AMBIG UOUS DEFAU LT lymphs (absolute) 1.6 x10e3 /uL 0.7-3. 1 normal Not Available [facility] ([facility]) [address] [facility], [place], [address], 12/09/2024 12:39:09 12/09/19 25 12/09/2024 CBC/D IFF AMBIG UOUS DEFAU LT monocytes(ab solute) 0.7 x10e3 /uL 0.1-0. 9 normal Not Available [facility] ([facility]) [address] [facility], [place], [address], 12/09/2024 12:39:09 12/09/19 25 12/09/2024 CBC/D IFF AMBIG UOUS DEFAU LT eos (absolute) 0.1 x10e3 /uL 0.0-0. 4 normal Not Available [facility] ([facility]) [address] [place], [address], 12/09/2024 12:39:09 12/09/19 25 12/09/2024 CBC/D IFF AMBIG UOUS DEFAU LT baso (absolute) 0.1 x10e3 /uL 0.0-0. 2 normal Not Available [facility] ([facility]) [address] [facility], [place], [address], 12/09/2024 12:39:09 12/09/1912/09/2024 CBC/D IFF AMBIG UOUS DEFAU LT immature granulocytes 1 % not estab. Not Available [facility] ([facility]) [address] [facility], [place], [address], 12/09/2024 12:39:09 12/09/19 25 12/09/2024 CBC/D IFF AMBIG UOUS DEFAU LT immature grans (abs) 0.0 x10e3 /uL 0.0-0. 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 In accor dance with the [facility] Ambig uous Test Code Polic y dated February 2003, we have assig marycruz CBC with Tyrone tobias al/Pl teodora t, Test Code #[address]. If this is not the testi ng you wishe d to recei ve on this speci men, pleas e conta ct the [facility] Jonathan t Inqui ry/ Techn ical Servi antonio Depar tment to nyla fy the test order . We appre ciate your busin ess. Not Available [facility] ([facility]) [address] [facility], [place], [address], 12/09/2024 12:39:09 12/09/19 25 12/09/2024 COMP. METAB OLIC PANEL (14) glucose 114 mg/dL 70-99 above high normal Not Available [facility] ([facility]) [address] [facility] [place], [address], 12/09/2024 12:39:10 12/09/19 25 12/09/2024 COMP. METAB OLIC PANEL (14) BUN 14 mg/dL 8-27 normal Not Available [facility] ([facility]) [address] [facility] [place], [address], 12/09/2024 12:39:10 12/09/19 25 12/09/2024 COMP. METAB OLIC PANEL (14) creatinine 1.17 mg/dL 0.76-1 .27 normal Not Available [facility] ([facility]) [address] [facility] [place], [address], 12/09/2024 12:39:10 12/09/19 25 12/09/2024 COMP. METAB OLIC PANEL (14) eGFR 68 mL/mi n/1.7 3 >59 normal Not Available [facility] ([facility]) [address] [place], [address], 12/09/2024 12:39:10 12/09/19 25 12/09/2024 COMP. METAB OLIC PANEL (14) BUN/creatini ne ratio 12 10-24 normal Not Available [facility] ([facility]) [address] [place], [address], 12/09/2024 12:39:10 12/09/19 25 12/09/2024 COMP. METAB OLIC PANEL (14) sodium 140 mmol/ L 134-14 4 normal Not Available [facility] ([facility]) [address] [place], [address], 12/09/2024 12:39:10 12/09/19 25 12/09/2024 COMP. METAB OLIC PANEL (14) potassium 4.7 mmol/ L 3.5-5. 2 normal Not Available [facility] ([facility]) [address] [place], [address], 12/09/2024 12:39:10 12/09/19 25 12/09/2024 COMP. METAB OLIC PANEL (14) chloride 102 mmol/ L 96-106 normal Not Available [facility] ([facility]) [address] [place], [address], 12/09/2024 12:39:10 12/09/19 25 12/09/2024 COMP. METAB OLIC PANEL (14) carbon dioxide, total 23 mmol/ L 20-29 normal Not Available [facility] ([facility]) [address] [place], [address], 12/09/2024 12:39:10 12/09/19 25 12/09/2024 COMP. METAB OLIC PANEL (14) calcium 9.6 mg/dL 8.6-10 .2 normal Not Available [facility] ([facility]) [address] [place], [address], 12/09/2024 12:39:10 12/09/19 25 12/09/2024 COMP. METAB OLIC PANEL (14) protein, total 8.0 g/dL 6.0-8. 5 normal Not Available [facility] ([facility]) [address] [place], [address], 12/09/2024 12:39:10 12/09/19 25 12/09/2024 COMP. METAB OLIC PANEL (14) albumin 4.8 g/dL 3.9-4. 9 normal Not Available [facility] ([facility]) [address] [place], [address], 12/09/2024 12:39:10 12/09/19 25 12/09/2024 COMP. METAB OLIC PANEL (14) globulin, total 3.2 g/dL 1.5-4. 5 Not Available [facility] ([facility]) [address] [facility], [place], [address], 12/09/2024 12:39:10 12/09/19 25 12/09/2024 COMP. METAB OLIC PANEL (14) bilirubin, total 0.6 mg/dL 0.0-1. 2 normal Not Available [facility] ([facility]) [address] [facility], [place], [address], 12/09/2024 12:39:10 12/09/19 25 12/09/2024 COMP. METAB OLIC PANEL (14) alkaline phosphatase 64 IU/L 44-121 normal Not Available [facility] ([facility]) [address] [facility], [place], [address], 12/09/2024 12:39:10 12/09/19 25 12/09/2024 COMP. METAB OLIC PANEL (14) AST (SGOT) 23 IU/L 0-40 normal Not Available [facility] ([facility]) [address] [facility], [place], [address], 12/09/2024 12:39:10 12/09/19 25 12/09/2024 COMP. METAB OLIC PANEL (14) ALT (SGPT) 21 IU/L 0-44 normal Not Available [facility] ([facility]) [address] [facility], [place], [address], 12/09/2024 12:39:10 12/09/19 25 12/09/2024 LIPID PANEL cholesterol, total 169 mg/dL 100-19 9 normal Not Available [facility] ([facility]) [address] [facility], [place], [address], 12/09/2024 12:39:11 12/09/19 25 12/09/2024 LIPID PANEL triglyceride s 125 mg/dL 0-149 normal Not Available [facility] ([facility]) [address] [place], [address], 12/09/2024 12:39:11 12/09/19 25 12/09/2024 LIPID PANEL HDL cholesterol 39 mg/dL >39 below low normal Not Available [facility] ([facility]) [address] [place], [address], 12/09/2024 12:39:11 12/09/19 25 12/09/2024 LIPID PANEL VLDL cholesterol saundra 23 mg/dL 5-40 Not Available [facility] ([facility]) [address] [place], [address], 12/09/2024 12:39:11 12/09/19 25 12/09/2024 LIPID PANEL LDL chol calc ([facility]) 107 mg/dL 0-99 above high normal Not Available [facility] ([facility]) [address] [facility], [place], [address], 12/09/2024 12:39:11 12/09/19 25 12/09/2024 LIPID PANEL 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 normal Not Available [facility] ([facility]) [address] [place], [address], 12/09/2024 12:39:11 12/09/19 25 12/09/2024 ALBUM IN/CR EATIN INE RATIO ,URIN E albumin, urine 13.3 ug/mL not estab. Not Available [facility] ([facility]) [address] [place], [address], 12/09/2024 12:39:11 12/09/19 25 12/09/2024 ALBUM IN/CR EATIN INE RATIO ,URIN E alb/creat ratio 9 mg/g_ creat 0-29 Hannah l: 0 - 29 Moder ately incre ased: 30 - 300 Sever omar incre ased: >300 Not Available [facility] ([facility]) [address] [facility], [place], [address], 12/09/2024 12:39:11 12/09/19 25 12/09/2024 PROST ATE-S PECIF IC AG prostate specific Ag 1.8 NG/mL 0.0-4. 0 normal Luis Eduardo ECLIA metho dolog y. Accor ding to the Ameri can Urolo gical Assoc iatio n, Serum PSA shoul d decre ase and remai n at undet ectab le level s after radic al prost atect jaquelin. The AUA defin es bioch emica l recur rence as an initi al PSA value 0.2 ng/mL or great er follo wed by a subse quent confi rmato ry PSA value 0.2 ng/mL or great er. Value s obtai marycruz with diffe rent assay metho ds or kits canno t be used inter yen eably . Resul ts canno t be inter prete d as absol seminole evide nce of the prese nce or absen ce of chika lo se. Not Available [facility] ([facility]) [address] [facility], [place], [address], 12/09/2024 12:39:12 12/09/19 25 12/09/2024 VITAM IN D, 25-HY DROXY vitamin D, 25-hydroxy 31.3 NG/mL 30.0-1 00.0 Vitam in D defic iency has been defin ed by the Insti tute of Medic ine and an Endoc rine Socie ty pract ice guide line as a level of serum 25-OH vitam in D less than 20 ng/mL (1,2) . The Endoc rine Socie ty went on to furth er defin e vitam in D insuf ficie ncy as a level betwe en 21 and 29 ng/mL (2). 1. IOM (Inst itute of Medic ine). 2010. Dieta ry refer ence intak es for calci um and D. Rosa jimenez [place]: The Natio nal Acade mipal Press . 2. Elier kasper MF, Simon ey [place], Bisfab off-F errar i SOUSA, et al. Evalu ation , treat ment, and preve ntion of vitam in D defic iency : an Endoc rine Socie ty clini saundra pract ice guide line. JCEM. 2010; 96(7) :1911 -30. Not Available [facility] ([facility]) [address] [facility], [place], [address], 12/09/2024 12:39:12 12/09/19 25 12/09/2024 HIV AB/P2 4 AG WITH REFLE X HIV Ab/P24 Ag screen Non Reacti ve non reacti ve HIV-1 /HIV- 2 antib odies and HIV-1 p24 antig en were NOT detec karen. There is no labor atory evide nce of HIV infec tion. HIV Negat laura Not Available [facility] ([facility]) [address] [facility], [place], [address], 12/09/2024 12:39:13 05/29/20 24 05/26/2024 XR, chest , 2 view No observ ation record ed. [facility] [address], [place], [address], 05/29/2024 22:34:40 Result Notes None recorded. 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 554952025 Active Michelle ramírez [facility] 6 21:18:16 Hyperlip idemia 76007817 Active Michelle ramírez [facility] 6 21:18:24 Benign essentia l hyperten cam 7721615 Active Michelle ramírez [facility] 6 21:18:33 History of male erectile disorder 655679297 Active Michelle ramírez [facility] 6 21:18:45 [place] ht 607184795 Active Michelle Nicole null, [facility] 6 21:19:01 Excessiv e vitamin B6 intake Completed 04/27/2016 Removal Reason: -- changed to hypervita minosis B6 Anmol Vidal MD [address], [place], [address], [facility] 6 11:13:36 Myositis [id number] Active 2015 Anmol Vidal MD [address], [place], [address], [facility] 6 07:35:15 Schizoph diana [id number] Active 2022 Anmol Vidal MD [address], [place], [address], [facility] 3 18:19:58 Essentia l hyperten cam [id number] Active 2022 Anmol Vidal MD [address], [place], [address], [facility] 3 18:19:58 Vitamin D deficien cy 83445157 Active 2022 Anmol Vidal MD [address], [place], [address], [facility] 3 18:19:58 Hypertri glycerid emia 274905219 Active 2022 Anmol Vidal MD [address], [place], [address], [facility] 3 07:36:35 Hypergly cemia [id number] Active 2022 Anmol Vidal MD [address], [place], [address], [facility] 3 07:32:50 Hypoglyc emia 898979621 Active 2022 Anmol Vidal MD [address], [place], [address], [facility] 3 19:59:30 Chronic insomnia 644259378 Active 2022 Anmol Vidal MD [address], [place], [address], [facility] 3 16:28:58 Upper respirat ory infectio n 93336822 Active 2022 Anmol Vidal MD [address], [place], [address], [facility] 3 07:47:38 Problem Notes None recorded. Procedures Surgical History Date Name Laterality Status Provider Name and Address Organization Details Recorded Time 7 Colonoscopy completed Anmol Vidal MD [address], [place], [address], [facility] 07/31/2017 20:06:56 1 Vasectomy completed Michelle Nicole [facility] 04/26/2016 21:22:04 Back Surgery completed Anmol Vidal MD [address], [place], [address], [facility] 04/27/2016 11:15:32 Imaging Results Imaging Date Name Status LastModified by Organiz ation Details LastModified Time 05/26/2024 XR, chest, 2 view completed [address], [place], [address], 05/29/2024 22:34:40 Procedure Notes None recorded. Medical Equipment None Reported. Allergies Allergen ID Allergen Name Allergen Category Reaction Reaction Severity Criticality Documentation Date Start Date Code Code System Note Provider Name and Address Organization Details Recorded Time 3506 Biaxin medicatio n Not available Not available Not available 04/26/201639559 9 RxNorm Michelle Nicole [facility], [facility] 6 21:17:47 Medications Name Sig Start Date Stop Date Status Note LastModified by Organization Details LastModified Time clindamyc in HCl 300 mg capsule Take 1 capsule every 6 hours by oral route. 05/31 completed Not Available Not Available Not Available trazodone 50 mg tablet TAKE 1 TABLET AT BEDTIME MUST PLAN FOR AT LEAST 8 HR OF SLEEP WHEN TAKING THIS MED active Not Available Not Available No t Available azithromy amilcar 250 mg tablet TAKE 2 TABLETS BY MOUTH TODAY, THEN TAKE 1 TABLET DAILY FOR 4 DAYS 04/27 completed Not Available Not Available Not Available lisinopri l 20 mg tablet TAKE 1 TABLET BY MOUTH EVERY DAY active Not Available Not Available No t Available Niaspan 500 mg tablet,ex tended release TAKE 2 TABLETS ONCE EVERY EVENING AFTER DINNER 04/27 completed Not Available Not Available Not Available amlodipin e 5 mg tablet TAKE 1 TABLET BY MOUTH ONCE DAILY 06/08 completed Not Available Not Available Not Available tramadol 50 mg tablet TAKE 1 TABLET BY MOUTH 1 TO 2 TIMES DAILY NEEDED 04/27 completed Not Available Not Available Not Available lisinopri l 10 mg tablet TAKE 1 TABLET BY MOUTH EVERY DAY IN THE EVENING 12/01 completed Not Available Not Available Not Available omeprazol e 20 mg capsule,d elayed release 06/08 completed Not Available Not Available Not Available Longs Adult Low Strength ASA 81 mg tablet,de layed release Take 1 tablet every day by oral route. 04/27 completed Not Available Not Available Not Available Viagra 100 mg tablet 04/27 completed -- currentl y on Cialis Not Available Not Available Not Available oxycodone -acetamin ophen 7.5 mg-325 mg tablet 11/29 completed Not Available Not Available Not Available cefdinir 300 mg capsule TAKE 1 CAPSULE BY MOUTH EVERY 12 HOURS 12/09 completed Not Available Not Available Not Available fluticaso ne propionat e 50 mcg/actua tion nasal spray,mitchell pension USE 2 SPRAYS NASALLY DAILY IN THE MORNING 04/27 completed Not Available Not Available Not Available amoxicill in 875 mg-potass ium clavulana te 125 mg tablet TAKE 1 TABLET BY MOUTH EVERY 12 HOURS UNTIL ALL TAKEN 12/09 completed Not Available Not Available Not Available Bactrim DS 800 mg-160 mg tablet Take 1 tablet every 12 hours by oral route. 04/27 completed Not Available Not Available Not Available rosuvasta tin 10 mg tablet TAKE 1 TABLET BY MOUTH EVERY DAY 12/09 completed Current ASCVD risk calculat ion is 15.5% (12/09/24 ) -- inform pt to increase his Rosuvast atin from 10 mg --> 20 mg daily Not Available Not Available Not Available rosuvasta tin 20 mg tablet Take 1 tablet every day by oral route. 2024 active Not Available Not Available Not Avai lable tadalafil 20 mg tablet TAKE 1 TABLET DAILY NEEDED ONLY 04/27 completed Not Available Not Available Not Available Cialis 5 mg tablet Take 1 tablet every day by oral route. 11/19 completed -- currentl y on 20 mg prn Not Available Not Available Not Available chlorhexi dine gluconate 0.12 % mouthwash 11/29 completed Not Available Not Available Not Available Lipofen 150 mg capsule TAKE 1 CAPSULE AT BEDTIME 05/31 completed Not Available Not Available Not Available Mucinex 1,200 mg tablet, extended release Take 1 tablet every 12 hours by oral route. 11/29 completed Not Available Not Available Not Available fenofibri c acid 105 mg tablet Take 1 tablet every day by oral route. 12/05 completed -- changed to Vascepa Not Available Not Available Not Available Vitamin D3 125 mcg (5,000 unit) tablet Take 1 tablet every day by oral route. 04/27 completed Not Available Not Available Not Available icosapent ethyl 1 gram capsule TAKE 2 CAPSULES BY MOUTH TWICE DAILY active Not Available Not Available No t Available Vitals Date Recorded Respiratory rate Body height Body mass index (BMI) Body weight Body temperature Heart rate Systolic blood pressure Diastolic blood pressure Provider Name and Address Organization Details Last Updated DateTime 3 16 /min 185.42 cm 24.4 kg/m2 07643.5 9 g 97.9 [degF] 65 /min 144 mm[Hg] 77 mm[Hg] Jen Ramirez [facility] 3 17:45:12 Date Recorded Body height Body mass index (BMI) Body weight Respiratory rate Body temperature Heart rate Systolic blood pressure Diastolic blood pressure Provider Name and Address Organization Details Last Updated DateTime 3 185.42 cm 23.5 kg/m2 15799.4 4 g 16 /min 97.8 [degF] 70 /min 137 mm[Hg] 82 mm[Hg] Kailyn Hawkins [facility] 3 15:17:53 Date Recorded Heart rate Respiratory rate Systolic blood pressure Diastolic blood pressure Provider Name and Address Organization Details Last Updated DateTime 08/19/2023 89 /min 16 /min 155 mm[Hg] 77 mm[Hg] [facility] 10/06/2023 11:01:20 Date Recorded Body height Heart rate Respiratory rate Body temperature Body mass index (BMI) Body weight Provider Name and Address Organization Details Last Updated DateTime 4 185.42 cm 78 /min 16 /min 97.5 [degF] 23.6 kg/m2 44101.0 3 g [facility] 4 11:11:40 Date Recorded Systolic blood pressure Diastolic blood pressure Provider Name and Address Organization Details Last Updated DateTime 12/09/2023 117 mm[Hg] 70 mm[Hg] Anmol Vidal MD [address], [place], [address], [facility] 12/09/2023 12:12:34 Date Recorded Body height Heart rate Respiratory rate Body temperature Body mass index (BMI) Body weight Systolic blood pressure Diastolic blood pressure Provider Name and Address Organization Details Last Updated DateTime 4 185.42 cm 85 /min 16 /min 97.4 [degF] 23.7 kg/m2 92816.6 3 g 163 mm[Hg] 93 mm[Hg] [facility] 4 11:47:54 Date Recorded Body height Heart rate Respiratory rate Body temperature Body mass index (BMI) Body weight Provider Name and Address Organization Details Last Updated DateTime 4 185.42 cm 67 /min 16 /min 97.2 [degF] 23.9 kg/m2 74059.2 2 g [facility] 4 10:56:32 Date Recorded Systolic blood pressure Diastolic blood pressure Provider Name and Address Organization Details Last Updated DateTime 06/05/2024 119 mm[Hg] 70 mm[Hg] Anmol Vidal MD [address], [place], [address], [facility] 06/05/2024 11:57:52 Social History Question Answer Notes LastModified by Organizat ion Details LastModified Time Tobacco Smoking Status Never Smoker Michelle Nicole [facility] 04/26/2016 21:21:36 Do You Have An Advance Directive? No Information not available 02/09/2022 What Is Your Level Of Alcohol Consumption? Occasional [email or web address] Information not available 04/26/2016 How Many Years Have You Consumed Alcohol? 2 Information not available 02/09/2022 Do You Wear A Helmet When Biking? Yes Information not available 02/09/2022 Are You Blind Or Do You Have Difficulty Seeing? Yes Information not available 02/09/2022 Is Blood Transfusion Acceptable In An Emergency? Yes Information not available 02/09/2022 What Is Your Level Of Caffeine Consumption? Occasional Information not available 02/09/2022 What Is Your Code Status? Full Code Information not available 02/09/2022 In The 14 Days Before Symptom Onset, Have You Had Close Contact With A Laboratory-confir med COVID-19 While That Case Was Ill? No Information not available 02/09/2022 In The 14 Days Before Symptom Onset, Have You Had Close Contact With A Person Who Is Under Investigation For COVID-19 While That Person Was Ill? No Information not available 02/09/2022 Have You Been To An Area Known To Be High Risk For COVID-19? No Information not available 02/09/2022 Are You Currently Employed? No Information not available 02/09/2022 Are You Deaf Or Do You Have Serious Difficulty Hearing? Yes Information not available 02/09/2022 Which Illicit Or Recreational Drugs Have You Used? Marijuane Information not available 02/09/2022 Have You Processed Blood Or Body Fluids From An Ebola Virus Disease Patient Without Appropriate PPE? No Information not available 02/09/2022 Do You Reside In Or Have You Traveled To An Area Where Ebola Virus Transmission Is Active? No Information not available 02/09/2022 What Is The Highest Grade Or Level Of School You Have Completed Or The Highest Degree You Have Received? [id number] Information not available 02/09/2022 Have There Been Any Changes To Your Family Or Social Situation? No Information no t available 02/09/2022 What Is The Fluoride Status Of Your Home? Non-fluoridate d Information not available 02/09/2022 Are There Any Guns Present In Your Home? No Information not available 02/09/2022 How Many Years Have You Used Illicit Or Recreational Drugs? 4 Information not available 02/09/2022 Do You Use Insect Repellent Routinely? Yes Information not available 02/09/2022 What Was The Date Of Your Most Recent Tobacco Screening? 05/26/2024 Information not available 05/26/2024 Do You Have Any Pets? Yes Information not available 02/09/2022 What Is Your Relationship Status? Information not available 02/09/2022 Do You Use Your Seat Belt Or Car Seat Routinely? Yes Information not available 02/09/2022 Do You Have Smoke And Carbon Monoxide Detectors In Your Home? Yes Information not available 02/09/2022 Are You Passively Exposed To Smoke? Yes Information no t available 02/09/2022 What Types Of Sporting Activities Do You Participate In? Run,walk, Bike Information not available 02/09/2022 Do You Feel Stressed (tense, Restless, Nervous, Or Anxious, Or Unable To Sleep At Night)? [id number] Information not available 02/09/2022 Do You Use Any Illicit Or Recreational Drugs? Yes Information not available 02/09/2022 Do You Use Sunscreen Routinely? Yes Information not available 02/09/2022 Have You Used IV Drugs? No Information not available 02/09/2022 Sex: Unknown Functional Status Question Answer Note LastModified by Organizat ion Details LastModified Time Do you have difficulty walking or climbing stairs? No Information not available 02/09/2022 Do you have transportation difficulties? No Information not available 02/09/2022 Do you have difficulty doing errands alone? No Information not available 02/09/2022 Are you able to care for yourself? Yes Information not available 02/09/2022 Do you have difficulty dressing or bathing? No Information not available 02/09/2022 What is your exercise level? Moderate Information not available 02/09/2022 Mental Status Question Answer Note LastModified by Organization D etails LastModified Time Do you have difficulty concentrating, remembering or making decisions? Yes Information no t available 02/09/2022 Family History Relationship Description Onset Age of this Age Resolved Age Notes LastModified by Organization Details LastModified Time Maternal Grandfather Malignant neoplasm of prostate [email or web address] Not available 2015 21:20:43 Father Cirrhosis of liver [email or web address] Not available 2015 21:21:05 Paternal Aunt Malignant neoplasm of urinary bladder [email or web address] Not available 2015 21:21:22 Notes:Heart disease 1 brothe r w/ CABG at 60 y/o; Muncle w/ ND @ 25 y/o; Puncle w/ CHF & Paunt w/ CABG in her mid 60s M - mom w/ AAA and brain Aneurysm No diabetes mellitus Medical History No medical history recorded. Immunizations Vaccine Type Date Status Note Provider Nam e and Address Organization Details Recorded Time COVID-19 mRNA, bivalent, original/Omicron BA.1, Non-US Vaccine (Spikevax Bivalent), Moderna 3 completed Kailyn ramírez [facility] 06/08/2023 15:19:47 Respiratory syncytial virus (RSV) vaccine, unspecified 3 completed Kailyn ramírez [facility] 06/30/2023 13:29:41 zoster recombinant 3 completed Anmol iVdal MD [address], [place], [address], [facility] 12/09/2023 12:17:19 zoster recombinant 2 completed Anmol Vidal MD [address], [place], [address], [facility] 12/09/2023 12:17:41 Pneumococcal conjugate PCV20, polysaccharide [id number] conjugate, adjuvant, PF 4 completed Wendy ramírez [facility] 01/19/2024 22:17:06 Past Encounters Encounter ID Performer Location Encounter Start Date Encounter Closed Date Diagnosis/Indication Diagnosis SNOMED-CT Code Diagnosis ICD10 Code Diagnosis Note [id number] Anmol Vidal MD [facility] [employer], [facility] [address] [facility] [address] [place] [address] 04/27/2016 10:30:36 04/27/2016 11:35:13 Benign essential hypertension 6969291 I10 -- Blood pressure control; no medication adjustment needed Hyperlipidemia 77026754 E78.5 -- Cholestero l was previously well controlled ; will need new labs to assess status; no changes for now.-- will issue coupon Hypervitaminosis B6 2381 97048 E67.2 -- recheck level within a week. Overweight 837534161 E66 .3 -- resolved Helicobact er pylori gastrointestinal tract infection 558501507 B96.81 History of male erectile disorder 617666456 Z87.438 Allergic rhinitis 091796 04 J30.9 -- stable Low back pain 832050213 M54.5 -- no flares currently Skin lesion 00037022 L98 .9 (right abdominal wall) -- less then 6 mm (polyp like) [id number] Windy Anderson, [facility] [employer] [facility] [address] [address] 09/23/2016 14:19:14 09/23/2016 15:08:13 Acute pharyngitis 808871209 J02.9 Cough 11161215 R05 [id number] Anmol Vidal MD [place] [employer] [facility] [address] [address] 11/19/2016 09:15:54 11/19/2016 10:06:20 Adult health examination 073209385 Z00.00 Hyperlipidemia 62732363 E78.5 -- Cholestero l was previously well controlled ; will need new labs to assess status; no changes for now.-- will issue coupon Allergic rhinitis 958094 04 J30.9 Impotence of organic origin 548203186 N52.9 [id number] BRANDON RIVERA APN [place] [employer] [facility] [address] [facility] [address] [place] [address] 05/31/2017 17:42:40 05/31/2017 18:36:34 Hyperlipidemia 19078432 E78.5 Allergic rhinitis 089627 04 J30.9 no current problems Impotence of organic origin 394522463 N52.9 Body mass index 20-24 - normal 677026497 Z68.24 Screening for malignant neoplasm of colon 382834890 Z12.11 Screening procedure 2012 5006 Z13.9 Low back pain 203306309 M54.5 Vitamin D deficiency 347 94280 E55.9 [id number] Anmol Vidal MD [facility], [facility] [address] [place] [address] 11/29/2017 11:41:26 11/29/2017 12:50:02 Hyperlipidemia 50465069 E78.5 -- Cholestero l was previously well controlled ; will need new labs to assess status; no changes for now.-- will issue coupon Allergic rhinitis 928171 04 J30.9 Impotence of organic origin 363235840 N52.9 Body mass index 25-29 - overweight 635248374 Z68.25 -- pt gained 8 # since his last visit; advised weight loss-- pt's BMI today is 25.5 (ideal is between 20-25) Viral screening 08821956 4 Active or passive immunization 026637964 Z23 Screening for malignant neoplasm of colon 171539332 Z12.11 -- gastroente rologist Dr Elliott recommends repeat colonoscop y 10 years from 07/27/17 Screening for malignant neoplasm of prostate 401402193 Z12.5 [id number] Anmol Vidal MD [place] [employer] [facility] [employer] [address] [place] [address] 02/09/2022 13:35:14 02/09/2022 16:12:28 Schizophrenia 00319921 F20.9 -- check lab(s) within 3 days from 02/09/22 Body mass index 20-24 - normal 211937105 Z68.23 -- pt lost 19 # since his last visit-- pt's BMI today is 23 (ideal is between 20-25) Hepatitis C screening 41 4755009 Z11.59 -- tested negative for Hep C on 11/29/17 Active or passive immunization 373625086 Z23 Screening for malignant neoplasm of colon 023767624 Z12.11 -- gastroente rologist Dr Elliott recommends repeat colonoscop y 10 years from 07/27/17 Screening for malignant neoplasm of prostate 824910644 Z12.5 Essential hypertension 93892855 I10 -- check lab(s) within 3 days from 02/09/22 Hyperlipidemia 84999972 E78.5 -- check lab(s) within 3 days from 02/09/22 Vitamin D deficiency 347 94237 E55.9 -- check lab(s) within 3 days from 02/09/22 [id number] Anmol Vidal MD [place] [employer] [facility], [facility] [address] [place] [address] 04/27/2023 16:03:08 04/27/2023 18:46:31 Essential hypertension 39408486 I10 -- recheck labs(s) within 7 days from 04/27/23 Hyperlipidemia 27869154 E78.5 -- recheck labs(s) within 7 days from 04/27/23 Vitamin D deficiency 347 18282 E55.9 -- recheck labs(s) within 7 days from 04/27/23 Body mass index 20-24 - normal 299847041 Z68.23 -- pt is in the healthy weight category w/ a BMI of 24.4 (ideal is between 20-25) Hepatitis C screening 41 2062394 Z11.59 -- tested negative for Hep C on 11/29/17 Active or passive immunization 475532411 Z23 Screening for malignant neoplasm of colon 743534300 Z12.11 -- gastroente rologist Dr Elliott recommends repeat colonoscop y 10 years from 07/27/17 Screening for malignant neoplasm of prostate 721007415 Z12.5 -- PSA level of 3.5 (11/29/17)-- recheck labs(s) within 7 days from 04/27/23 [id number] Anmol Vidal MD [place] [employer], [facility] [address] [place] [address] 06/08/2023 14:33:27 06/08/2023 16:46:21 Adult health examination 577286780 Z00.00 Essential hypertension 43652098 I10 Hyperlipidemia 71372198 E78.5 Based on the current ASCVD risk calculatio n of 25.5% on 05/10/23, inform pt to start on Rosuvastat in 10 mg daily, and continue w/ Vascepa 2 pills BID. -- recheck labs on 07/14/23. Vitamin D deficiency 347 90927 E55.9 -- repleted w/ Vit D level of 30.8 (04/28/23) Body mass index 20-24 - normal 933842057 Z68.23 -- pt is in the healthy weight category with a BMI of 23.5 (ideal is between 20-25) Hepatitis C screening 41 1420409 Z11.59 -- tested negative for Hep C on 11/29/17 Active or passive immunization 277397528 Z23 Screening for malignant neoplasm of colon 574742800 Z12.11 -- gastroente rologist Dr Elliott recommends repeat colonoscop y 10 years from 07/27/17 Screening for malignant neoplasm of prostate 112588493 Z12.5 -- PSA level of 3.5 (11/29/17) --> 1.9 (04/28/23) Hypoglycemia 354460787 E 16.2 (glucose of 67 at 1 hr after glucose challenge on 06/08/23) Chronic insomnia 4883825 04 F51.04 Advised good sleep habits and patterns to include: 1. Setting a goal for at least 7 to 8 hours of sleep time per day. 2. Using the bed mainly for sleep and to go to bed only when tired. If unable to fall asleep after 30 minutes, patient should get out of bed but should not engage in any activity that requires sustained mental alertness. 3. Maintainin g a regular bedtime and wake-up time even on weekends or days off of work. 4. Avoiding excessive naps during the daytime. If a nap is necessary, limit it to no more than 30minutes. 5. Minimizing environmen brittney noise, bright lights, and extremes in bedroom temperatur e. 6. Avoiding alcohol, caffeinate d beverages, and nicotine products for at least 6 hours prior to bedtime.7. Avoiding strenuous exercise and large meals for at least 4 hours prior to bedtime. [id number] Anmol Vidal MD [facility] [address] [place] [address] 12/09/2023 09:52:24 12/09/2023 12:28:42 Essential hypertension 12337421 I10 Hyperlipidemia 38751161 E78.5 Based on the current ASCVD risk calculatio n of 25.5% on 05/10/23, inform pt to start on Rosuvastat in 10 mg daily, and continue w/ Vascepa 2 pills BID. -- recheck labs on 07/14/23. Hypoglycemia 847406896 E 16.2 (glucose of 67 at 1 hr after glucose challenge on 06/08/23) Vitamin D deficiency 347 03022 E55.9 -- repleted w/ Vit D level of 30.8 (04/28/23) Chronic insomnia 8933954 04 F51.04 Advised good sleep habits and patterns to include: 1. Setting a goal for at least 7 to 8 hours of sleep time per day. 2. Using the bed mainly for sleep and to go to bed only when tired. If unable to fall asleep after 30 minutes, patient should get out of bed but should not engage in any activity that requires sustained mental alertness. 3. Maintainin g a regular bedtime and wake-up time even on weekends or days off of work. 4. Avoiding excessive naps during the daytime. If a nap is necessary, limit it to no more than 30minutes. 5. Minimizing environmen brittney noise, bright lights, and extremes in bedroom temperatur e. 6. Avoiding alcohol, caffeinate d beverages, and nicotine products for at least 6 hours prior to bedtime.7. Avoiding strenuous exercise and large meals for at least 4 hours prior to bedtime. Body mass index 20-24 - normal 996737030 Z68.23 -- pt is in the healthy weight category with a BMI of 23.6 (ideal is between 20-25) Hepatitis C screening 41 3254400 Z11.59 -- tested negative for Hep C on 11/29/17 Active or passive immunization 997568244 Z23 Screening for malignant neoplasm of colon 473447847 Z12.11 -- gastroente rologist Dr Elliott recommends repeat colonoscop y 10 years from 07/27/17 Screening for malignant neoplasm of prostate 456976184 Z12.5 -- PSA level of 3.5 (11/29/17) --> 1.9 (04/28/23) HIV screening 341999968 Z11.4 CDC recommends that everyone between the ages of 13 and 64 get tested for HIV at least once as part of routine health care. [id number] Anmol Vidal MD [facility] [employer], [facility] [address] [place] [address] 05/26/2024 10:35:59 05/26/2024 12:31:01 Upper respiratory infection 57573842 J06.9 Acute puru lent bronchitis 405096533 J20.9 Hyperlipidemia 90714234 E78.5 Based on the current ASCVD risk calculatio n of 25.5% on 05/10/23, inform pt to start on Rosuvastat in 10 mg daily, and continue w/ Vascepa 2 pills BID. -- recheck labs on 07/14/23. Essential hypertension 72602101 I10 [id number] Anmol Vidal MD [facility] [address] [place] [address] 06/05/2024 10:04:31 06/05/2024 12:21:45 Adult health examination 801602496 Z00.00 Essential hypertension 62137540 I10 Hyperlipidemia 26984397 E78.5 Based on the current ASCVD risk calculatio n of 25.5% on 05/10/23, inform pt to start on Rosuvastat in 10 mg daily, and continue w/ Vascepa 2 pills BID. -- recheck labs on 07/14/23. Hypoglycemia 954258343 E 16.2 (glucose of 67 at 1 hr after glucose challenge on 06/08/23) Vitamin D deficiency 347 30744 E55.9 -- repleted w/ Vit D level of 30.8 (04/28/23) Chronic insomnia [id number] 04 F51.04 Advised good sleep habits and patterns to include: 1. Setting a goal for at least 7 to 8 hours of sleep time per day. 2. Using the bed mainly for sleep and to go to bed only when tired. If unable to fall asleep after 30 minutes, patient should get out of bed but should not engage in any activity that requires sustained mental alertness. 3. Maintainin g a regular bedtime and wake-up time even on weekends or days off of work. 4. Avoiding excessive naps during the daytime. If a nap is necessary, limit it to no more than 30minutes. 5. Minimizing environmen brittney noise, bright lights, and extremes in bedroom temperatur e. 6. Avoiding alcohol, caffeinate d beverages, and nicotine products for at least 6 hours prior to bedtime.7. Avoiding strenuous exercise and large meals for at least 4 hours prior to bedtime. Body mass index 20-24 - normal [id number] Z68.23 -- pt is in the healthy weight category with a BMI of 23.9 (ideal is between 20-25) Hepatitis C screening 41 [id number] Z11.59 -- tested negative for Hep C on 11/29/17 HIV screening 529282103 Z11.4 CDC recommends that everyone between the ages of 13 and 64 get tested for HIV at least once as part of routine health care. Active or passive immunization [id number] Z23 Screening for malignant neoplasm of colon 266269197 Z12.11 -- gastroente rologist Dr Elliott recommends repeat colonoscop y 10 years from 07/27/17 Screening for malignant neoplasm of prostate 138327506 Z12.5 -- PSA level of 3.5 (11/29/17) --> 1.9 (04/28/23) Advance di rective discussed with patient 480275462 Z71.89 At low risk for fall 439 734006 Z91.81 -- no unsteady balance or gait problems-- have not fallen for over-- no fear of falling or falling tendency Upper resp iratory infection [id number] J06.9 -- resolved Health Concerns Section Related Observation LastModified by Organization Detai ls LastModified Time None Recorded Concern Status LastModified by Organization Details LastModified Time None Recorded Advance Directives Directive N: Payers Encounter Date Sequence Insurance Name Policy Number Policy Henry Covered Member ID Henry Member ID Guarantor Name 04/27/2023 1 [employer] (MEDICARE REPLACEMENT PPO) [id number] 1 Tate Lr [id number] Tate [employer] 06/08/2023 1 [employer] (MEDICARE REPLACEMENT PPO) [id number] Tate Lr [id number] Tate Lr 12/09/2023 1 [employer] (MEDICARE REPLACEMENT PPO) [id number] 1 Tate Lr [id number] Tate Lr 05/26/2024 1 [employer] (MEDICARE REPLACEMENT PPO) [id number] 1 Tate Lr [id number] Tate Lr 06/05/2024 1 [employer] (MEDICARE REPLACEMENT PPO) [id number] 1 Tate Lr [id number] Tate [employer] Notes Date Note Type Note Provider Name and Address Organization Details Recorded Time 04/27/2023 text/html Pt comes in for HTN, HLD, Vit D def, and weight.Pt feels well and has no c/o. Pt has no new sx and no increasing sx. Patient denies any jaw or neck discomfort, left arm pain/left arm discomfort, chest discomfort/pain, diaphoresis, breathing symptoms/chest tightness, indigestion sx, n/v, any angina equivalent symptoms, etc. Anmol Vidal MD [address], [place], [address], [facility] 04/27/2023 18:38:05 06/08/2023 text/html Pt comes in for f/u of HTN, HLD, Hypoglycemia, Vit D def and weight. Pt feels well and has no c/o. Pt has no new sx and no increasing sx. Patient denies any jaw or neck discomfort, left arm pain/left arm discomfort, chest discomfort/pain, diaphoresis, breathing symptoms/chest tightness, indigestion sx, n/v, any angina equivalent symptoms, etc. Anmol Vidal MD [address] [facility] [address], [place], [address], [facility] 06/08/2023 16:45:52 12/09/2023 text/html Pt wakes up in t he morning he says he feels like he has had a pot of coffee and his BP is high. Pt also has occasional insomnia. Pt feels well and has no c/o. Pt has no new sx and no increasing sx. Patient denies any jaw or neck discomfort, left arm pain/left arm discomfort, chest discomfort/pain, diaphoresis, breathing symptoms/chest tightness, indigestion sx, n/v, any angina equivalent symptoms, etc. Anmol Vidal MD [address], [place], [address], [facility] 12/09/2023 12:25:42 05/26/2024 text/html Pt comes in for recurrent URI. No F/C, n/v, GOOD/SOB, chest discomfort. Pt feels well and has no c/o. Pt has no new sx and no increasing sx. Patient denies any jaw or neck discomfort, left arm pain/left arm discomfort, chest discomfort/pain, diaphoresis, breathing symptoms/chest tightness, indigestion sx, n/v, any angina equivalent symptoms, etc. Anmol Vidal MD [address] [place] [address] [address], [place], [address], [facility] 05/26/2024 12:32:22 06/05/2024 text/html Medicare Annual Wellness VisitReported bypatient.Diet and Nutrition:healthy diet Fracture Risk:no history of fractures; no recent explained fracture; no sudden unexplained fractures; no previous musculoskeletal injuries Physical Activity:discussed weightbearing activities; discussed exercise habits Depression Risk:never feels sad, empty, or tearful; no loss of interest in activities; no significant changes in weight; no sleep disturbances or insomnia; no agitation; no loss of energy; no feelings of worthlessness or guilt; no thoughts of suicide; no history of depression; no history of mood disorders Orientation:no disorientation to time; no disorientation to date; no disorientation to place Concentration and Memory:no decreased concentrating ability; no memory lapses or loss; does not forget words Speech/Motor difficulties:no speech difficulties; no difficulty expressing formulated concepts; no difficulty with fine manipulative tasks; no difficulty writing/copying; no slowed reaction time; does not knock things over when trying to pick them up Hearing:no loss of hearing Vision:no vision problems Activities of Daily Living:able to bathe with limited or no assistance; able to contol urination and bowels; able to dress with limited or no assistance; able to feed self with limited or no assistance; able to get out of chair or bed with limited or no assistance; able to groom with limited or no assistance; able to toilet with limited or no assistance Instrumental Activities of Daily Living:able to do house work with limited or no assistance; able to grocery shop with limited or no assistance; able to manage medications with limited or no assistance; able to manage money with limited or no assistance; able to prepare meals with limited or no assistance; able to use the phone with limited or no assistance Falls Risk Assessment:no frequent falls while walking; no fall in the past year; no fall since last visit; no dizziness/vertigo Home Safety:no unsafe arvin hazzards; no unsafe stairs; no unsafe gas appliances; working smoke/CO detectors; use of seatbelts; no vision or hearing loss while driving; no fire arms; has hand bars in the bathroom/shower; good lighting in the home Pt comes in for f/u of HTN, HLD, Vit D def, and insomnia. Pt is also due for annual Wellness Visit. Pt feels well and has no c/o. Pt has no new sx and no increasing sx. Patient denies any jaw or neck discomfort, left arm pain/left arm discomfort, chest discomfort/pain, diaphoresis, breathing symptoms/chest tightness, indigestion sx, n/v, any angina equivalent symptoms, etc. Anmol Vidal MD [address] [place] [address] [address], [place], [address], [facility] 06/05/2024 12:19:22
[2024-12-27 11:19] LABS: Uric Acid 8.1 mg/dL (3.5-8.5)
== END 2024-12-27 12:00 | disposition home or self-care (01) ==
PROVIDERS: Emergency Provider Registered Nurse; PCP Internal Medicine
DX: S99.922A Unspecified injury of left foot, initial encounter (principal); M10.9 Gout, unspecified; I10 Essential (primary) hypertension; X58.XXXA Exposure to other specified factors, initial encounter
CPT/HCPCS: 36415; 73630; 84550; 96372; 99283; J1885

== ENCOUNTER 2025-06-09 12:09 | Emergency (ER) | payer MEDICARE, SELFPAY ==
--- OUTSIDE RECORDS SUMMARY | 2025-06-09 12:12 | XMS_ITS | Clinical Summary ---
Author Organization [facility] Address [address] [place] [address] Care Team Providers Care Developer Programmer Name Role Phone Unavailable Primary Care Provider Unavailabl e Social History Tobacco Use Types Packs/Day Years Used Date Smoking Tobacco: Never Assessed Sex and Gender Information Value Date Recorded Sex Assigned at Male 06/08/2025 12:45 PM CDT Legal Sex Male 6:57 PM CDT Gender Identity Not on file Sexual Orientation Not on file Plan of Treatment Health Maintenance Due Date Last Done Comments Colorectal Cancer Screening Colonoscopy (10 Years) 1957 Hepatitis C 1975 DTaP, Tdap and Td Vaccines ( 1 - Tdap) 1976 Pneumococcal Vaccine: 50+ Ye ars (1 of 1 - PCV) 2007 Zoster Vaccines (1 of 2) 2007 COVID-19 Vaccine (1 - 2023-2 5 season) 2025 Influenza Adult (#1) 2025 RSV Immunization or 60+ Years (1 - 1-dose 75+ series) 2032 Meningococcal B Vaccine Aged Out No l onger eligible based on patient's age to complete this topic Meningococcal Vaccine Aged Out No michael sarita eligible based on patient's age to complete this topic RSV Immunizations Under 20 Months Aged Out No longer eligible based on patient's age to complete this topic
--- NOTE | 2025-06-09 12:15 | ED_ITS ---
HPI - Ear Problem General Chief complaint: Ear Stated complaint: R Ear Time Seen by Provider: 06/09/25 12:18 Source: patient Mode of arrival: ambulatory Limitations: no limitations History of Present Illness HPI Narrative: 69 y/o male presented for c/o right ear pain, nasal congestion and drainage, and sinus pressure for over one week. Ear pain worsened last night. Pain is intermittent, at times feels sharp and stabbing, and radiates below the ear. Denies ear drainage, tinnitus, dizziness, fever. Took Mucinex last night. MD Complaint: ear pain Related Data Home Medications ?Medication ?Instructions ?Recorded ?Confirmed ?Last Taken ?Type icosapent ethyl 1 gram capsule g PO 06/09/25 Unknown History lisinopril 20 mg tablet mg 06/09/25 Unknown History rosuvastatin 20 mg tablet mg 06/09/25 Unknown History Allergies Allergy/AdvReac Type Severity Reaction Status Date / Time No Known Allergies Allergy Verified 06/09/25 12:20 Review of Systems Review of Systems: CONSTITUTIONAL: Denies malaise, chills, or fever. EYES: Denies visual changes, redness, or discharge. ENT: Denies sinus pain, and sore throat. Reports ear pain, rhinorrhea, congestion, CARDIOVASCULAR: Denies chest pain, palpitations, or edema. RESPIRATORY: Denies cough or dyspnea. GASTROINTESTINAL: Denies abdominal pain, nausea, vomiting, diarrhea NEUROLOGIC: Denies headache. All systems reviewed & are unremarkable except as noted in HPI and below PMFSH Comments At time of signature, agree with nursing past medical, surgical, social and family history. There is no relevant family history pertinent to the presenting complaint Exam Narrative: GENERAL: Well-appearing EYES: conjunctivae clear ENT: Nares clear. Mucous membranes moist. TMs normal with clear effusion; canal not erythematous, no drainage, no tragal tenderness. Oropharynx not erythematous without lesions. no drooling, no hoarseness, no trismus, uvula midline. CHEST: Clear to auscultation, breath sounds equal. HEART: Regular rate and rhythm. No murmur heard. SKIN: Warm, dry, no rash. NEURO: Alert and oriented x3. PSYCH: Normal mood and affect Course Course Emergency Course: Patient is aware of diagnosis, understands and agrees to treatment plan. Anticipatory guidance given. Patient agrees to follow-up as directed and is aware of reasons to seek care at the emergency department. Portions of this record may have been created with voice recognition software Level of Care: Express Care Visit Vital Signs Vital signs: Vital Signs Temperature 97.8 F 06/09/25 12:18 Pulse Rate 80 06/09/25 12:18 Respiratory Rate 18 06/09/25 12:18 Blood Pressure 144/93 H 06/09/25 12:18 Pulse Oximetry 97 06/09/25 12:18 Oxygen Delivery Room Air 06/09/25 12:18 Temperature 97.8 F 06/09/25 12:18 Pulse Rate 80 06/09/25 12:18 Respiratory Rate 18 06/09/25 12:18 Blood Pressure 144/93 H 06/09/25 12:18 Pulse Oximetry 97 06/09/25 12:18 Oxygen Delivery Room Air 06/09/25 12:18 Reviewed Medical Decision Making MDM Narrative Medical decision making narrative: Discussed physical exam findings c/w URI. Reviewed RX. Advised supportive measures and signs/symptoms to go to the ER. Patient is appropriate for outpatient treatment and follow-up. Differential Diagnosis Differential Diagnosis: Coronavirus, strep pharyngitis, allergic rhinitis, upper respiratory tract infection, sinusitis, rhinosinusitis, nasopharyngitis, viral pharyngitis, otitis media, otitis externa, eustachian tube dysfunction, foreign body, cerumen impaction. Vital Signs Vital Signs: Vital Signs Temperature 97.8 F 06/09/25 12:18 Pulse Rate 80 06/09/25 12:18 Respiratory Rate 18 06/09/25 12:18 Blood Pressure 144/93 H 06/09/25 12:18 Pulse Oximetry 97 06/09/25 12:18 Oxygen Delivery Room Air 06/09/25 12:18 Temperature 97.8 F 06/09/25 12:18 Pulse Rate 80 06/09/25 12:18 Respiratory Rate 18 06/09/25 12:18 Blood Pressure 144/93 H 06/09/25 12:18 Pulse Oximetry 97 06/09/25 12:18 Oxygen Delivery Room Air 06/09/25 12:18 Discharge Plan Discharge Clinical Impression: Upper respiratory infection Patient Disposition: Home Condition: Stable Instructions: Antibiotic Form, Sinusitis (ED) Additional Instructions: Recommendations: Flonase spray and Zyrtec (or Claritin/Landy) Tylenol 1000mg every 8 hours as needed for pain/fever If no improvement with the above measures you can start the antibiotic Follow up with your primary care provider in 1 week. Go to the ER for worsening symptoms or concerns. Patient Language: Ukrainian Prescriptions: New amoxicillin-pot clavulanate 875-125 mg tablet 1 tablet PO Q12H 7 Days Qty: 14 0RF No Action lisinopril 20 mg tablet rosuvastatin 20 mg tablet icosapent ethyl 1 gram capsule PO Follow-up/Referrals: Young,MD Patricio ([place]) [Primary Care Provider] Time of Disposition: 12:30
[2025-06-09 12:18] VITALS: BP 144/93; PULSE 80; RESP 18; TEMP 36.6; O2SAT 97
== END 2025-06-09 12:34 | disposition home or self-care (01) ==
PROVIDERS: Emergency Provider Nurse Practitioner Family; PCP Internal Medicine
DX: J06.9 Acute upper respiratory infection, unspecified (principal); I10 Essential (primary) hypertension; E78.00 Pure hypercholesterolemia, unspecified
CPT/HCPCS: 99213; G0463